=== PATIENT | female | born 1950 | race Caucasian/White ===

== ENCOUNTER 2019-03-09 13:48 | Inpatient (IN) | payer MEDICARE ==
[~2019-03-09] VITALS: Ht 149.9 cm; Wt 68.8 kg
[2019-03-09] MEDS ORDERED: VANCOMYCIN HCL 1 GM/D5% WATER 200 ML IV ONE (14:00)
[2019-03-09] MEDS ORDERED: PIPERACILLIN/TAZO 3.375 GM/D5W 50 ML IV ONE (14:00)
[2019-03-09 14:21] LABS: BASOPHILS % (AUTO) 0.1 % (0.0-2.0); EOSINOPHILS % (AUTO) 0 % (1.0-6.0); HEMATOCRIT 29.3 % (36-46); LYMPHOCYTES # (AUTO) 0.3 K/uL (1.0-4.8); LYMPHOCYTES % (AUTO) 1.2 % (22.0-44.0); MEAN CORPUSCULAR HEMOGLOBIN 23.9 pg (26.0-34.0); MEAN CORPUSCULAR HGB CONC 30.6 G/dL (31.0-37.0); MEAN CORPUSCULAR VOLUME 78 fL (80-100); MONOCYTES # (AUTO) 0.9 K/uL (0.1-1.0); MONOCYTES % (AUTO) 3.7 % (2.0-9.0); NEUTROPHILS # (AUTO) 24.1 K/uL (1.8-7.7); PLATELET COUNT (AUTO) 257 K/uL (150-450); RED BLOOD CELL COUNT(AUTO) 3.75 MIL/uL (4.00-5.20)
[2019-03-09 14:34] LABS: INR 1.1 (0.9-1.1); PROTHROMBIN TIME 11.4 SEC (9.4-11.6)
[2019-03-09 14:43] LABS: CALCIUM, TOTAL 8.2 mg/dL (8.8-10.5); CREATININE 3.75 mg/dL (0.60-1.30); POTASSIUM 3.6 mmol/L (3.5-5.1)
[2019-03-09 14:51] LABS: LACTIC ACID 1.8 mmol/L (0.4-2.0)
[2019-03-09 14:57] LABS: ALBUMIN 2.4 g/dL (3.4-5.0); BILIRUBIN,TOTAL 0.5 mg/dL (0.1-1.0); TOTAL PROTEIN, SERUM 6.7 g/dL (6.4-8.2)
[2019-03-09] MEDS ORDERED: SODIUM CHLORIDE 0.9% 2,200 ML IV ONE (15:15)
[2019-03-09] MEDS ORDERED: 0.9% SODIUM CHLORIDE 10 ML SYRINGE IVP PRN (15:45)
[2019-03-09] MEDS ORDERED: ACETAMINOPHEN 325 MG TABLET PO PRN ×2 (15:45→16:30)
[2019-03-09] MEDS ORDERED: ONDANSETRON HCL 4 MG/2 ML VIAL IVP PRN ×2 (15:45→16:30)
[2019-03-09] MEDS ORDERED: MUPIROCIN CALCIUM 2% 22 GM OINTMENT TP ONE (16:15)
[2019-03-09] MEDS ORDERED: BISACODYL 10 MG RECTAL RECTAL SUPPOSITORY PR PRN (16:30)
[2019-03-09] MEDS ORDERED: MAGNESIUM HYDROXIDE SUSPENSION 30 ML UDCUP PO PRN (16:30)
[2019-03-09] MEDS ORDERED: ZOLPIDEM TARTRATE 5 MG TABLET PO PRN (16:30)
[2019-03-09] MEDS ORDERED: SODIUM CHLORIDE 0.9% 1,000 ML IV ONE (16:30)
[2019-03-09] MEDS ORDERED: HYDROCODONE/ACETAMINOPHEN 5-325 MG TABLET PO PRN (16:30)
[2019-03-09] MEDS: DOCUSATE SODIUM 100 MG CAPSULE PO SCH (21:19)
[2019-03-09 21:30] VITALS: BP 127/66
[2019-03-09] MEDS: PIPERACILLIN SODIUM/TAZOBACTAM 2.25 GM in DEXTROSE 5%-WATER 50 ML IV SCH (22:32)
[2019-03-09] MEDS: HEPARIN SODIUM,PORCINE 5,000 UNITS/ML VIAL SQ SCH (23:57)
[2019-03-10 00:12] VITALS: BP 119/64
[2019-03-10 04:46] VITALS: BP 111/60
[2019-03-10] MEDS: PIPERACILLIN SODIUM/TAZOBACTAM 2.25 GM in DEXTROSE 5%-WATER 50 ML IV SCH ×3 (05:58→21:06)
[2019-03-10 07:21] VITALS: BP 114/53
[2019-03-10] MEDS: PANTOPRAZOLE SODIUM 40 MG DR TABLET PO SCH (09:05)
[2019-03-10] MEDS: DOCUSATE SODIUM 100 MG CAPSULE PO SCH ×2 (09:06→21:06)
[2019-03-10] MEDS: HEPARIN SODIUM,PORCINE 5,000 UNITS/ML VIAL SQ SCH ×2 (09:06→17:30)
[2019-03-10 09:13] LABS: BASOPHILS % (AUTO) 0.1 % (0.0-2.0); EOSINOPHILS % (AUTO) 0 % (1.0-6.0); HEMATOCRIT 27.3 % (36-46); HEMOGLOBIN 8.4 g/dL (12.0-16.0); LYMPHOCYTES # (AUTO) 0.5 K/uL (1.0-4.8); MEAN CORPUSCULAR HEMOGLOBIN 24.3 pg (26.0-34.0); MEAN CORPUSCULAR HGB CONC 30.7 G/dL (31.0-37.0); MEAN CORPUSCULAR VOLUME 79 fL (80-100); MONOCYTES # (AUTO) 0.9 K/uL (0.1-1.0); MONOCYTES % (AUTO) 3.5 % (2.0-9.0); NEUTROPHILS # (AUTO) 23.5 K/uL (1.8-7.7); PLATELET COUNT (AUTO) 213 K/uL (150-450); RED BLOOD CELL COUNT(AUTO) 3.46 MIL/uL (4.00-5.20); RED CELL DISTRIBUTION WIDTH 24.9 % (11.5-14.5)
[2019-03-10 09:25] LABS: NEUTROPHILS % (AUTO) 94.4 % (40.0-70.0)
[2019-03-10] MEDS: MORPHINE SULFATE 2 MG/ML SYRINGE IVP PRN (09:31)
[2019-03-10 09:32] LABS: CALCIUM, TOTAL 7.5 mg/dL (8.8-10.5); CREATININE 3.43 mg/dL (0.60-1.30)
[2019-03-10 11:05] VITALS: BP 114/65
[2019-03-10] MEDS: SODIUM CHLORIDE 0.9% 1,000 ML IV SCH (13:18)
[2019-03-10 15:31] VITALS: BP 115/61
[2019-03-10 19:52] VITALS: BP 106/51
[2019-03-10] MEDS ORDERED: POTASSIUM CHLORIDE 20 MEQ ER TABLET PO ONE (23:45)
[2019-03-11] VITALS (7 sets, daily range): BP systolic 100–143; BP diastolic 60–69
[2019-03-11] MEDS: HEPARIN SODIUM,PORCINE 5,000 UNITS/ML VIAL SQ SCH ×3 (00:16→21:30)
[2019-03-11] MEDS: PIPERACILLIN SODIUM/TAZOBACTAM 2.25 GM in DEXTROSE 5%-WATER 50 ML IV SCH ×3 (05:56→21:30)
[2019-03-11 06:40] LABS: EOSINOPHILS % (AUTO) 0 % (1.0-6.0); HEMATOCRIT 26.4 % (36-46); HEMOGLOBIN 8.3 g/dL (12.0-16.0); LYMPHOCYTES # (AUTO) 0.7 K/uL (1.0-4.8); MEAN CORPUSCULAR HEMOGLOBIN 25.3 pg (26.0-34.0); MEAN CORPUSCULAR HGB CONC 31.6 G/dL (31.0-37.0); MEAN CORPUSCULAR VOLUME 80 fL (80-100); MONOCYTES # (AUTO) 1.2 K/uL (0.1-1.0); MONOCYTES % (AUTO) 5.1 % (2.0-9.0); NEUTROPHILS # (AUTO) 22.3 K/uL (1.8-7.7); PLATELET COUNT (AUTO) 229 K/uL (150-450); RED BLOOD CELL COUNT(AUTO) 3.29 MIL/uL (4.00-5.20); RED CELL DISTRIBUTION WIDTH 24.9 % (11.5-14.5)
[2019-03-11 06:46] LABS: NEUTROPHILS % (AUTO) 91.9 % (40.0-70.0)
[2019-03-11 07:05] LABS: CALCIUM, TOTAL 7.5 mg/dL (8.8-10.5); CREATININE 3.26 mg/dL (0.60-1.30); POTASSIUM 3.8 mmol/L (3.5-5.1)
[2019-03-11 07:05] LABS: CREATININE,URINE RANDOM 76.1 mg/dL (30.0-125.0)
[2019-03-11] MEDS: PANTOPRAZOLE SODIUM 40 MG DR TABLET PO SCH (08:35)
[2019-03-11] MEDS: DOCUSATE SODIUM 100 MG CAPSULE PO SCH ×2 (08:35→21:29)
[2019-03-11] MEDS: SODIUM HYPOCHLORITE 0.25% [HALF STRENGTH] 473 ML SOLUTION TP SCH (09:00)
[2019-03-11] MEDS: VANCOMYCIN HCL 750 MG in DEXTROSE 5%-WATER 250 ML IV SCH (10:43)
[2019-03-11] MEDS: SODIUM CHLORIDE 0.9% 1,000 ML IV SCH (15:05)
[2019-03-11] MEDS: MORPHINE SULFATE 2 MG/ML SYRINGE IVP PRN (18:04)
[2019-03-11 20:41] LABS: APPEARANCE,URINE CLOUDY (CLEAR); BILIRUBIN,URINE NEGATIVE (NEGATIVE); GLUCOSE, URINE (UA) NEGATIVE (NEGATIVE); KETONES,URINE NEGATIVE (NEGATIVE); LEUKOCYTE ESTERASE ,URINE LARGE (NEGATIVE); NITRATE,URINE NEGATIVE (NEGATIVE); OCCULT BLOOD,URINE LARGE (NEGATIVE); PH,URINE 7.5 (5.0-8.0); PROTEIN,URINE POS 1+ (NEGATIVE)
[2019-03-11 20:49] LABS: BACTERIA,URINE Many /HPF (None Seen); SQUAMOUS EPITHELIAL CELL,UR Few /LPF (None Seen); WBC,URINE 51-100 /HPF (0-5)
[2019-03-11] MEDS: CITRIC ACID/SODIUM CITRATE 30 ML SOLUTION UDCUP PO SCH (21:30)
[2019-03-12] VITALS (16 sets, daily range): BP systolic 106–138; BP diastolic 56–78
[2019-03-12] MEDS: MORPHINE SULFATE 2 MG/ML SYRINGE IVP PRN (03:47)
[2019-03-12] MEDS: SODIUM HYPOCHLORITE 0.25% [HALF STRENGTH] 473 ML SOLUTION TP SCH (03:50)
[2019-03-12] MEDS ORDERED: SODIUM CHLORIDE 0.9% IRRIG BTL 1,000 ML IRRIG ONE (04:19)
[2019-03-12] MEDS: PIPERACILLIN SODIUM/TAZOBACTAM 2.25 GM in DEXTROSE 5%-WATER 50 ML IV SCH ×3 (05:52→23:01)
[2019-03-12 07:30] LABS: BASOPHILS % (AUTO) 0.3 % (0.0-2.0); EOSINOPHILS % (AUTO) 0.4 % (1.0-6.0); LYMPHOCYTES # (AUTO) 0.6 K/uL (1.0-4.8); LYMPHOCYTES % (AUTO) 3.4 % (22.0-44.0); MEAN CORPUSCULAR HEMOGLOBIN 24.6 pg (26.0-34.0); MEAN CORPUSCULAR HGB CONC 31.1 G/dL (31.0-37.0); MEAN CORPUSCULAR VOLUME 79 fL (80-100); MONOCYTES # (AUTO) 0.7 K/uL (0.1-1.0); MONOCYTES % (AUTO) 4.2 % (2.0-9.0); PLATELET COUNT (AUTO) 180 K/uL (150-450); RED BLOOD CELL COUNT(AUTO) 2.79 MIL/uL (4.00-5.20); RED CELL DISTRIBUTION WIDTH 25.2 % (11.5-14.5)
[2019-03-12 07:34] LABS: NEUTROPHILS % (AUTO) 91.7 % (40.0-70.0)
[2019-03-12 07:37] LABS: HEMOGLOBIN 6.8 g/dL (12.0-16.0)
[2019-03-12 07:44] LABS: CALCIUM, TOTAL 7.1 mg/dL (8.8-10.5); CREATININE 2.73 mg/dL (0.60-1.30); POTASSIUM 3.9 mmol/L (3.5-5.1)
[2019-03-12] MEDS: CITRIC ACID/SODIUM CITRATE 30 ML SOLUTION UDCUP PO SCH ×2 (08:15→21:18)
[2019-03-12] MEDS: DOCUSATE SODIUM 100 MG CAPSULE PO SCH ×2 (08:15→21:00)
[2019-03-12] MEDS: PANTOPRAZOLE SODIUM 40 MG DR TABLET PO SCH (08:15)
[2019-03-12] MEDS: HEPARIN SODIUM,PORCINE 5,000 UNITS/ML VIAL SQ SCH ×2 (08:15→21:18)
[2019-03-12] MEDS ORDERED: SODIUM CHLORIDE 0.9% 500 ML IV ONE (10:49)
[2019-03-13 05:51] VITALS: BP 121/62
[2019-03-13] MEDS: PIPERACILLIN SODIUM/TAZOBACTAM 2.25 GM in DEXTROSE 5%-WATER 50 ML IV SCH (06:14)
[2019-03-13 06:34] LABS: EOSINOPHILS % (AUTO) 0.3 % (1.0-6.0); HEMATOCRIT 27.6 % (36-46); HEMOGLOBIN 8.8 g/dL (12.0-16.0); LYMPHOCYTES # (AUTO) 0.8 K/uL (1.0-4.8); LYMPHOCYTES % (AUTO) 4.1 % (22.0-44.0); MEAN CORPUSCULAR HEMOGLOBIN 25.1 pg (26.0-34.0); MEAN CORPUSCULAR HGB CONC 31.9 G/dL (31.0-37.0); MEAN CORPUSCULAR VOLUME 79 fL (80-100); MONOCYTES # (AUTO) 0.9 K/uL (0.1-1.0); MONOCYTES % (AUTO) 4.7 % (2.0-9.0); PLATELET COUNT (AUTO) 194 K/uL (150-450); RED BLOOD CELL COUNT(AUTO) 3.51 MIL/uL (4.00-5.20); RED CELL DISTRIBUTION WIDTH 23.2 % (11.5-14.5)
[2019-03-13 06:45] LABS: CALCIUM, TOTAL 7.2 mg/dL (8.8-10.5); CREATININE 2.57 mg/dL (0.60-1.30); MAGNESIUM 1.6 mg/dL (1.80-2.40); PHOSPHORUS 2.5 mg/dL (2.5-4.9); POTASSIUM 3.9 mmol/L (3.5-5.1); VANCOMYCIN,RANDOM 13.2 mcg/mL (25.0-50.0)
[2019-03-13 07:09] LABS: NEUTROPHILS % (AUTO) 90.9 % (40.0-70.0)
[2019-03-13 07:10] VITALS: BP 124/65
[2019-03-13] MEDS: DOCUSATE SODIUM 100 MG CAPSULE PO SCH ×2 (08:18→21:00)
[2019-03-13] MEDS: PANTOPRAZOLE SODIUM 40 MG DR TABLET PO SCH (08:18)
[2019-03-13] MEDS: HEPARIN SODIUM,PORCINE 5,000 UNITS/ML VIAL SQ SCH ×2 (08:18→21:55)
[2019-03-13] MEDS: VANCOMYCIN HCL 750 MG in DEXTROSE 5%-WATER 250 ML IV SCH (08:18)
[2019-03-13] MEDS: CITRIC ACID/SODIUM CITRATE 30 ML SOLUTION UDCUP PO SCH ×2 (08:18→21:55)
[2019-03-13 12:01] VITALS: BP 132/76
[2019-03-13 14:04] VITALS: BP 135/67
[2019-03-13] MEDS: SODIUM HYPOCHLORITE 0.25% [HALF STRENGTH] 473 ML SOLUTION TP SCH (15:00)
[2019-03-13] MEDS: LEVOFLOXACIN 250 MG TABLET PO SCH (15:22)
[2019-03-13] MEDS ORDERED: MAGNESIUM OXIDE 400 MG TABLET PO ONE (15:30)
[2019-03-13 17:30] VITALS: BP 127/73
[2019-03-13 19:34] VITALS: BP 133/75
[2019-03-14 00:11] VITALS: BP 134/80
[2019-03-14 05:22] VITALS: BP 147/75
[2019-03-14 06:59] LABS: CALCIUM, TOTAL 7.6 mg/dL (8.8-10.5); CREATININE 2.38 mg/dL (0.60-1.30); POTASSIUM 3.9 mmol/L (3.5-5.1)
[2019-03-14 07:57] VITALS: BP 134/89
[2019-03-14] MEDS: DOCUSATE SODIUM 100 MG CAPSULE PO SCH ×2 (09:00→21:00)
[2019-03-14] MEDS: PANTOPRAZOLE SODIUM 40 MG DR TABLET PO SCH (09:33)
[2019-03-14] MEDS: CITRIC ACID/SODIUM CITRATE 30 ML SOLUTION UDCUP PO SCH ×2 (09:33→21:52)
[2019-03-14] MEDS: HEPARIN SODIUM,PORCINE 5,000 UNITS/ML VIAL SQ SCH ×2 (09:35→21:00)
[2019-03-14 11:24] VITALS: BP 141/71
[2019-03-14] MEDS: CeFAZolin 1 GM/DEXTROSE 50 ML IV SCH (14:36)
[2019-03-14 16:09] VITALS: BP 138/72
[2019-03-14] MEDS: MORPHINE SULFATE 2 MG/ML SYRINGE IVP PRN (16:27)
[2019-03-14] MEDS: SODIUM HYPOCHLORITE 0.25% [HALF STRENGTH] 473 ML SOLUTION TP SCH (19:50)
[2019-03-14 20:02] VITALS: BP 146/81
[2019-03-15] VITALS (8 sets, daily range): BP systolic 105–138; BP diastolic 57–88
[2019-03-15] MEDS: CeFAZolin 1 GM/DEXTROSE 50 ML IV SCH ×2 (01:53→14:35)
[2019-03-15 06:30] LABS: EOSINOPHILS % (AUTO) 1.1 % (1.0-6.0); HEMATOCRIT 24.8 % (36-46); LYMPHOCYTES # (AUTO) 0.6 K/uL (1.0-4.8); LYMPHOCYTES % (AUTO) 4.4 % (22.0-44.0); MEAN CORPUSCULAR HEMOGLOBIN 25.4 pg (26.0-34.0); MEAN CORPUSCULAR HGB CONC 32.2 G/dL (31.0-37.0); MEAN CORPUSCULAR VOLUME 79 fL (80-100); MONOCYTES # (AUTO) 0.7 K/uL (0.1-1.0); MONOCYTES % (AUTO) 5.3 % (2.0-9.0); NEUTROPHILS # (AUTO) 11.7 K/uL (1.8-7.7); PLATELET COUNT (AUTO) 220 K/uL (150-450); RED BLOOD CELL COUNT(AUTO) 3.13 MIL/uL (4.00-5.20); RED CELL DISTRIBUTION WIDTH 23.6 % (11.5-14.5)
[2019-03-15 06:45] LABS: CALCIUM, TOTAL 7.4 mg/dL (8.8-10.5); CREATININE 2.16 mg/dL (0.60-1.30); MAGNESIUM 1.5 mg/dL (1.80-2.40); POTASSIUM 3.8 mmol/L (3.5-5.1)
[2019-03-15 06:47] LABS: NEUTROPHILS % (AUTO) 89.2 % (40.0-70.0)
[2019-03-15] MEDS ORDERED: VANCOMYCIN HCL 1 GM/D5% WATER 200 ML IV SCH (08:00)
[2019-03-15] MEDS ORDERED: MAGNESIUM SULFATE 3 GM in DEXTROSE 5%-WATER 100 ML IV ONE (08:30)
[2019-03-15] MEDS: HEPARIN SODIUM,PORCINE 5,000 UNITS/ML VIAL SQ SCH ×2 (09:13→20:27)
[2019-03-15] MEDS: LEVOFLOXACIN 250 MG TABLET PO SCH (09:14)
[2019-03-15] MEDS: PANTOPRAZOLE SODIUM 40 MG DR TABLET PO SCH (09:14)
[2019-03-15] MEDS: DOCUSATE SODIUM 100 MG CAPSULE PO SCH ×2 (09:15→20:29)
[2019-03-15] MEDS: CITRIC ACID/SODIUM CITRATE 30 ML SOLUTION UDCUP PO SCH ×2 (09:15→20:26)
[2019-03-15] MEDS: SODIUM HYPOCHLORITE 0.25% [HALF STRENGTH] 473 ML SOLUTION TP SCH (09:33)
[2019-03-15] MEDS: MORPHINE SULFATE 2 MG/ML SYRINGE IVP PRN (14:53)
[2019-03-15] MEDS ORDERED: LORazepam 2 MG/ML VIAL IVP ONE (15:30)
[2019-03-16] MEDS: CeFAZolin 1 GM/DEXTROSE 50 ML IV SCH ×2 (01:36→15:51)
[2019-03-16 05:52] VITALS: BP 129/61
[2019-03-16 06:20] LABS: BASOPHILS % (AUTO) 0.2 % (0.0-2.0); EOSINOPHILS % (AUTO) 0.9 % (1.0-6.0); HEMATOCRIT 26.3 % (36-46); HEMOGLOBIN 8.4 g/dL (12.0-16.0); LYMPHOCYTES # (AUTO) 0.4 K/uL (1.0-4.8); LYMPHOCYTES % (AUTO) 3.5 % (22.0-44.0); MEAN CORPUSCULAR HEMOGLOBIN 25.5 pg (26.0-34.0); MEAN CORPUSCULAR VOLUME 80 fL (80-100); MONOCYTES # (AUTO) 0.7 K/uL (0.1-1.0); MONOCYTES % (AUTO) 5.5 % (2.0-9.0); NEUTROPHILS # (AUTO) 10.8 K/uL (1.8-7.7); PLATELET COUNT (AUTO) 244 K/uL (150-450); RED CELL DISTRIBUTION WIDTH 23.4 % (11.5-14.5)
[2019-03-16 06:24] LABS: NEUTROPHILS % (AUTO) 89.9 % (40.0-70.0)
[2019-03-16 06:36] LABS: CALCIUM, TOTAL 7.3 mg/dL (8.8-10.5); CREATININE 2.18 mg/dL (0.60-1.30); MAGNESIUM 2.2 mg/dL (1.80-2.40); PHOSPHORUS 1.7 mg/dL (2.5-4.9); POTASSIUM 3.5 mmol/L (3.5-5.1)
[2019-03-16 08:05] VITALS: BP 135/81
[2019-03-16] MEDS ORDERED: SODIUM PHOS,M-BASIC-D-BASIC 30 MMOL in DEXTROSE 5%-WATER 250 ML IV ONE (08:30)
[2019-03-16] MEDS: DOCUSATE SODIUM 100 MG CAPSULE PO SCH ×3 (09:00→21:45)
[2019-03-16] MEDS: CITRIC ACID/SODIUM CITRATE 30 ML SOLUTION UDCUP PO SCH ×2 (09:29→21:45)
[2019-03-16] MEDS: PANTOPRAZOLE SODIUM 40 MG DR TABLET PO SCH (09:29)
[2019-03-16] MEDS: HEPARIN SODIUM,PORCINE 5,000 UNITS/ML VIAL SQ SCH ×2 (09:42→21:46)
[2019-03-16 11:38] VITALS: BP 124/64
[2019-03-16] MEDS: MORPHINE SULFATE 2 MG/ML SYRINGE IVP PRN (13:25)
[2019-03-16] MEDS ORDERED: LORazepam 2 MG/ML VIAL ONE (13:30)
[2019-03-16] MEDS: SODIUM HYPOCHLORITE 0.25% [HALF STRENGTH] 473 ML SOLUTION TP SCH (15:20)
[2019-03-16 15:22] VITALS: BP 132/68
[2019-03-16 20:25] VITALS: BP 132/76
[2019-03-17 00:38] VITALS: BP 124/72
[2019-03-17] MEDS: CeFAZolin 1 GM/DEXTROSE 50 ML IV SCH ×2 (02:13→14:35)
[2019-03-17 04:15] VITALS: BP 135/88
[2019-03-17 06:56] LABS: % IRON SATURATION 14.1 % (22-44)
[2019-03-17 06:58] LABS: CALCIUM, TOTAL 7.1 mg/dL (8.8-10.5); CREATININE 2.26 mg/dL (0.60-1.30); POTASSIUM 3.5 mmol/L (3.5-5.1)
[2019-03-17] MEDS: DOCUSATE SODIUM 100 MG CAPSULE PO SCH ×3 (08:18→20:56)
[2019-03-17] MEDS: LEVOFLOXACIN 250 MG TABLET PO SCH (08:18)
[2019-03-17] MEDS: PANTOPRAZOLE SODIUM 40 MG DR TABLET PO SCH (08:18)
[2019-03-17] MEDS: HEPARIN SODIUM,PORCINE 5,000 UNITS/ML VIAL SQ SCH ×2 (08:19→20:57)
[2019-03-17 08:30] VITALS: BP 128/62
[2019-03-17] MEDS: CITRIC ACID/SODIUM CITRATE 30 ML SOLUTION UDCUP PO SCH ×2 (10:43→20:55)
[2019-03-17] MEDS: SOD FERRIC GLUC COMPLX/SUCROSE 125 MG in SODIUM CHLORIDE 0.9% 100 ML IV SCH (10:43)
[2019-03-17] MEDS: SODIUM HYPOCHLORITE 0.25% [HALF STRENGTH] 473 ML SOLUTION TP SCH (10:43)
[2019-03-17 11:02] VITALS: BP 132/72
[2019-03-17] MEDS: METOPROLOL SUCCINATE 25 MG ER TABLET PO SCH (14:35)
[2019-03-17 15:35] VITALS: BP 148/87
[2019-03-17 20:19] VITALS: BP 145/67
[2019-03-17] MEDS: MORPHINE SULFATE 2 MG/ML SYRINGE IVP PRN (20:55)
[2019-03-18 00:23] VITALS: BP 112/63
[2019-03-18] MEDS: CeFAZolin 1 GM/DEXTROSE 50 ML IV SCH ×2 (01:21→13:29)
[2019-03-18 04:18] VITALS: BP 129/69
[2019-03-18 04:24] VITALS: BP 127/81
[2019-03-18] MEDS ORDERED: SODIUM CHLORIDE 0.9% 1,000 ML IV SCH (05:45)
[2019-03-18 05:57] LABS: CALCIUM, TOTAL 7.3 mg/dL (8.8-10.5); CREATININE 2.17 mg/dL (0.60-1.30); POTASSIUM 3.6 mmol/L (3.5-5.1)
[2019-03-18] MEDS ORDERED: IOHEXOL 240 MG/ML 20 ML VIAL ONE (07:02)
[2019-03-18] MEDS ORDERED: SODIUM CL IRRIG SOLN BAG 3,000 ML IRRIG ONE (07:03)
[2019-03-18] MEDS ORDERED: FentaNYL CITRATE-PF 100 MCG/2 ML VIAL IVP PRN (08:30)
[2019-03-18] MEDS ORDERED: HYDROmorphone 2 MG/ML SYRINGE IVP PRN (08:30)
[2019-03-18] MEDS: SODIUM HYPOCHLORITE 0.25% [HALF STRENGTH] 473 ML SOLUTION TP SCH (09:00)
[2019-03-18] MEDS: SOD FERRIC GLUC COMPLX/SUCROSE 125 MG in SODIUM CHLORIDE 0.9% 100 ML IV SCH (09:00)
[2019-03-18] MEDS: CITRIC ACID/SODIUM CITRATE 30 ML SOLUTION UDCUP PO SCH ×2 (09:00→20:50)
[2019-03-18] MEDS: DOCUSATE SODIUM 100 MG CAPSULE PO SCH ×2 (09:00→20:51)
[2019-03-18] MEDS: HEPARIN SODIUM,PORCINE 5,000 UNITS/ML VIAL SQ SCH ×2 (09:00→20:50)
[2019-03-18] MEDS: PANTOPRAZOLE SODIUM 40 MG DR TABLET PO SCH (09:00)
[2019-03-18 11:20] VITALS: BP 124/66
[2019-03-18] MEDS: METOPROLOL SUCCINATE 25 MG ER TABLET PO SCH (13:29)
[2019-03-18 16:23] VITALS: BP 134/69
[2019-03-18] MEDS: MORPHINE SULFATE 2 MG/ML SYRINGE IVP PRN (16:27)
[2019-03-18 20:22] VITALS: BP 137/66
[2019-03-18] MEDS: OXYGEN THERAPY IH SCH (20:43)
[2019-03-19 00:20] VITALS: BP 126/64
[2019-03-19] MEDS ORDERED: SODIUM CHLORIDE 0.9% 500 ML IV ONE (02:05)
[2019-03-19] MEDS: CeFAZolin 1 GM/DEXTROSE 50 ML IV SCH (02:13)
[2019-03-19 04:40] VITALS: BP 107/61
[2019-03-19] MEDS ORDERED: NEOSTIGMINE METHYLSULFATE 1 MG/ML 10 ML VIAL IVP ONE (05:29)
[2019-03-19] MEDS ORDERED: PROPOFOL 1% 20 ML VIAL IVP ONE (05:29)
[2019-03-19] MEDS ORDERED: 0.9% SODIUM CHLORIDE 10 ML VIAL IVP ONE (05:29)
[2019-03-19] MEDS ORDERED: FentaNYL CITRATE-PF 100 MCG/2 ML VIAL IVP ONE (05:29)
[2019-03-19] MEDS ORDERED: DEXAMETHASONE SOD PHOS 4 MG/ML VIAL IVP ONE (05:29)
[2019-03-19] MEDS ORDERED: GLYCOPYRROLATE 0.2 MG/ML VIAL IM ONE (05:29)
[2019-03-19] MEDS ORDERED: EPHEDrine SULFATE 50 MG/ML VIAL IM ONE (05:29)
[2019-03-19] MEDS ORDERED: ONDANSETRON HCL 4 MG/2 ML VIAL IVP ONE (05:29)
[2019-03-19] MEDS ORDERED: LIDOCAINE/PF 2% 5 ML VIAL IM ONE (05:29)
[2019-03-19 06:38] LABS: BASOPHILS % (AUTO) 0.4 % (0.0-2.0); EOSINOPHILS % (AUTO) 0.3 % (1.0-6.0); HEMATOCRIT 22.6 % (36-46); HEMOGLOBIN 7.2 g/dL (12.0-16.0); LYMPHOCYTES # (AUTO) 0.4 K/uL (1.0-4.8); LYMPHOCYTES % (AUTO) 3.8 % (22.0-44.0); MEAN CORPUSCULAR HEMOGLOBIN 25.7 pg (26.0-34.0); MEAN CORPUSCULAR HGB CONC 31.9 G/dL (31.0-37.0); MEAN CORPUSCULAR VOLUME 81 fL (80-100); MONOCYTES # (AUTO) 0.6 K/uL (0.1-1.0); MONOCYTES % (AUTO) 5.6 % (2.0-9.0); NEUTROPHILS # (AUTO) 10.1 K/uL (1.8-7.7); PLATELET COUNT (AUTO) 213 K/uL (150-450); RED CELL DISTRIBUTION WIDTH 24.5 % (11.5-14.5)
[2019-03-19 06:42] LABS: NEUTROPHILS % (AUTO) 89.9 % (40.0-70.0)
[2019-03-19 07:17] VITALS: BP 116/68
[2019-03-19 07:23] LABS: ALBUMIN 1.3 g/dL (3.4-5.0); BILIRUBIN,TOTAL 0.2 mg/dL (0.1-1.0); CALCIUM, TOTAL 7.5 mg/dL (8.8-10.5); CREATININE 2.09 mg/dL (0.60-1.30); POTASSIUM 3.6 mmol/L (3.5-5.1)
[2019-03-19] MEDS: DOCUSATE SODIUM 100 MG CAPSULE PO SCH (08:20)
[2019-03-19] MEDS: HEPARIN SODIUM,PORCINE 5,000 UNITS/ML VIAL SQ SCH (08:21)
[2019-03-19] MEDS: PANTOPRAZOLE SODIUM 40 MG DR TABLET PO SCH (08:21)
[2019-03-19] MEDS: METOPROLOL SUCCINATE 25 MG ER TABLET PO SCH (08:22)
[2019-03-19] MEDS: CITRIC ACID/SODIUM CITRATE 30 ML SOLUTION UDCUP PO SCH (08:22)
[2019-03-19] MEDS: LEVOFLOXACIN 250 MG TABLET PO SCH (08:22)
[2019-03-19] MEDS: SOD FERRIC GLUC COMPLX/SUCROSE 125 MG in SODIUM CHLORIDE 0.9% 100 ML IV SCH (08:22)
[2019-03-19] MEDS: OXYGEN THERAPY IH SCH (08:29)
[2019-03-19] MEDS ORDERED: MULTIVITAMINS WITH MINERALS, THERAPEUTIC TABLET PO SCH (09:00)
[2019-03-19 10:51] VITALS: BP 133/83
[2019-03-26 13:08] LABS: STONE AMMONIUM ACID URATE 82 %; STONE COLOR Tan; STONE MG-AMMON.PHOSPHATE 10 %
== END 2019-03-19 12:30 | DRG 853 ==
LOC: EMS 13:49 → 5S 19:11 → 5N 03-10 15:55 → 5S 03-15 09:01
PROVIDERS: ADMIT Internal Medicine; ATTEND Internal Medicine
PROC: 30233N1 Transfusion of Nonautologous Red Blood Cells into Peripheral Vein, Percutaneous Approach (ICD-10-PCS; 2019-03-12)
PROC: BT1F1ZZ Fluoroscopy of Left Kidney, Ureter and Bladder using Low Osmolar Contrast (ICD-10-PCS; 2019-03-18)
PROC: 0T778DZ Dilation of Left Ureter with Intraluminal Device, Via Natural or Artificial Opening Endoscopic (ICD-10-PCS; principal; 2019-03-18 07:30)
DX: A41.9 Sepsis, unspecified organism (principal); E43 Unspecified severe protein-calorie malnutrition; E87.2 Acidosis; N17.9 Acute kidney failure, unspecified; I47.2 Ventricular tachycardia; N82.4 Other female intestinal-genital tract fistulae; L03.116 Cellulitis of left lower limb; N20.2 Calculus of kidney with calculus of ureter; N13.8 Other obstructive and reflux uropathy; N18.4 Chronic kidney disease, stage 4 (severe); M85.80 Other specified disorders of bone density and structure, unspecified site; N30.80 Other cystitis without hematuria; D50.9 Iron deficiency anemia, unspecified; E83.42 Hypomagnesemia; D63.1 Anemia in chronic kidney disease; D63.8 Anemia in other chronic diseases classified elsewhere; Z91.14 Patient's other noncompliance with medication regimen; Z68.30 Body mass index [BMI] 30.0-30.9, adult; Z91.19 Patient's noncompliance with other medical treatment and regimen
CPT/HCPCS: 72195; 74176; 76770; 82043; 82570; 82607; 82728; 83540; 83550; 83605; 83735; 84100; 84156; 84300; 84540; 85045; 86304; 86850; 86900; 86901; 86920; 87040; 87070; 87086; 87205; 88300; 93005; 93306; 96365; 96366; 96368; 97110; 97163; 97530; G0378; J0690; J1100; J1644; J2060; J2270; J2405; J2543; J2704; J2916; J3010; J3370; J3475; J3490; J7030; J7040; J7050; J7060; P9016; Q9966

== ENCOUNTER 2019-03-26 11:22 | Emergency (ER) | payer MEDICARE ==
[2019-03-26] VITALS (7 sets, daily range): BP systolic 121–132; BP diastolic 60–74
[~2019-03-26] VITALS: Ht 157.5 cm; Wt 63.5 kg
[2019-03-26 13:34] LABS: BASOPHILS % (AUTO) 0.6 % (0.0-2.0); EOSINOPHILS % (AUTO) 1.8 % (1.0-6.0); HEMATOCRIT 23.9 % (36-46); HEMOGLOBIN 7.6 g/dL (12.0-16.0); LYMPHOCYTES # (AUTO) 0.9 K/uL (1.0-4.8); LYMPHOCYTES % (AUTO) 9.5 % (22.0-44.0); MEAN CORPUSCULAR HEMOGLOBIN 26.9 pg (26.0-34.0); MEAN CORPUSCULAR HGB CONC 31.8 G/dL (31.0-37.0); MEAN CORPUSCULAR VOLUME 85 fL (80-100); MONOCYTES # (AUTO) 0.5 K/uL (0.1-1.0); MONOCYTES % (AUTO) 5.6 % (2.0-9.0); NEUTROPHILS # (AUTO) 7.6 K/uL (1.8-7.7); NEUTROPHILS % (AUTO) 82.5 % (40.0-70.0); PLATELET COUNT (AUTO) 408 K/uL (150-450); RED BLOOD CELL COUNT(AUTO) 2.82 MIL/uL (4.00-5.20); RED CELL DISTRIBUTION WIDTH 25.7 % (11.5-14.5)
[2019-03-26 13:46] LABS: CREATININE 1.43 mg/dL (0.60-1.30); POTASSIUM 3.8 mmol/L (3.5-5.1)
[2019-03-26 13:49] LABS: PROTHROMBIN TIME 10.4 SEC (9.4-11.6)
[2019-03-26 13:52] LABS: BILIRUBIN,TOTAL 0.2 mg/dL (0.1-1.0); TOTAL PROTEIN, SERUM 6.1 g/dL (6.4-8.2)
== END 2019-03-26 23:54 | disposition home or self-care (01) ==
LOC: EMS 11:23
DX: D64.9 Anemia, unspecified (principal); N85.8 Other specified noninflammatory disorders of uterus
CPT/HCPCS: 36415; 36430; 76856; 80053; 83690; 85025; 85610; 85730; 86850; 86900; 86901; 86920; 99285; P9016